=== PATIENT | female | born 1975 | race Caucasian/White ===

== ENCOUNTER 2016-12-05 05:14 | Emergency (ER) | payer BC ==
[2016-12-05] MEDS ORDERED: SODIUM CHLORIDE 0.9% 500 ML IV STA (05:33)
--- NOTE | 2016-12-05 05:35 | ED ---
General Adult HPI - General Source: patient, RN notes reviewed Mode of arrival: ambulatory Limitations: no limitations <Earle Rogers - Last Filed: 12/05/16 06:27> <Earle Rayo - Last Filed: 12/05/16 07:57> - General Chief complaint: Abdominal Pain Stated complaint: Abdominal Pain/Nausea Time Seen by Provider: 12/05/16 05:20 - History of Present Illness Initial comments: This is a 41-year-old female presents emergency Department with right upper quadrant epigastric pain. Patient states she woke up at 1:00 in the pain continued to feel about 4significant pain at that time. Patient states she's had multiple episodes of this intermittently throughout the last couple of years but has never been worked up for it. Patient states the pain now is very minimal. Patient states the pain radiated to her back. Patient denies any vomiting but was very nauseated at the time. She no longer is nauseated. Patient denies any fever or chills. Patient denies any diarrhea. Patient denied any chest pain palpitations difficulty breathing or shortness of breath. Patient denies any headache patient denies numbness weakness patient denies lightheadedness dizziness or near syncopal episode. (Earle Rogers) - Related Data Home Medications Medication Instructions Recorded Confirmed Acetaminophen Tab [Tylenol Tab] 1,000 mg PO Q6HR PRN 12/05/16 12/05/16 Allergies Allergy/AdvReac Type Severity Reaction Status Date / Time Penicillins Allergy Intermediate Rash/Hives Verified 12/05/16 07:39 Review of Systems ROS Other: All systems not noted in ROS Statement are negative. <Earle Rogers - Last Filed: 12/05/16 06:27> ROS Other: All systems not noted in ROS Statement are negative. <Earle Rayo - Last Filed: 12/05/16 07:57> ROS Statement: Those systems with pertinent positive or pertinent negative responses have been documented in the HPI. Past Medical History Past Medical History: No Reported History History of Any Multi-Drug Resistant Organisms: None Reported Past Surgical History: No Surgical Hx Reported Past Psychological History: No Psychological Hx Reported Smoking Status: Never smoker Past Alcohol Use History: None Reported Past Drug Use History: None Reported <Earle Rogers - Last Filed: 12/05/16 06:27> General Exam Limitations: no limitations <Rogers,Earle - Last Filed: 12/05/16 06:27> General appearance: alert, in no apparent distress Head exam: Present: atraumatic, normocephalic, normal inspection Eye exam: Present: normal appearance, PERRL, EOMI. Absent: scleral icterus, conjunctival injection, periorbital swelling ENT exam: Present: normal exam, mucous membranes moist Neck exam: Present: normal inspection. Absent: tenderness, meningismus, lymphadenopathy Respiratory exam: Present: normal lung sounds bilaterally. Absent: respiratory distress, wheezes, rales, rhonchi, stridor Cardiovascular Exam: Present: regular rate, normal rhythm, normal heart sounds. Absent: systolic murmur, diastolic murmur, rubs, gallop, clicks GI/Abdominal exam: Present: soft, normal bowel sounds. Absent: distended, tenderness, guarding, rebound, rigid Extremities exam: Present: normal inspection, full ROM, normal capillary refill. Absent: tenderness, pedal edema, joint swelling, calf tenderness Back exam: Present: normal inspection Neurological exam: Present: alert, oriented X3, CN II-XII intact Psychiatric exam: Present: normal affect, normal mood Skin exam: Present: warm, dry, intact, normal color. Absent: rash <Earle Rayo - Last Filed: 12/05/16 07:57> - General Exam Comments Initial Comments: GENERAL: Patient is well-developed and well-nourished. Patient is nontoxic and well- hydrated and is in mild distress. ENT: Neck is soft and supple. No significant lymphadenopathy is noted. Oropharynx is clear. Moist mucous membranes. Neck has full range of motion without eliciting any pain. EYES: The sclera were anicteric and conjunctiva were pink and moist. Extraocular movements were intact and pupils were equal round and reactive to light. Eyelids were unremarkable. PULMONARY: Unlabored respirations. Good breath sounds bilaterally. No audible rales rhonchi or wheezing was noted. CARDIOVASCULAR: There is a regular rate and rhythm without any murmurs gallops or rubs. ABDOMEN: Mild tenderness in the right upper quadrant epigastric region. No palpable organomegaly was noted. There is no palpable pulsatile mass. SKIN: Skin is clear with no lesions or rashes and otherwise unremarkable. NEUROLOGIC: Patient is alert and oriented x3. Cranial nerves II through XII are grossly intact. Motor and sensory are also intact. Normal speech, volume and content. Symmetrical smile. MUSCULOSKELETAL: Normal extremities with adequate strength and full range of motion. No lower extremity swelling or edema. No calf tenderness. LYMPHATICS: No significant lymphadenopathy is noted PSYCHIATRIC: Normal psychiatric evaluation. Normal interpersonal interactions appears functionally intact in deals appropriately with others. No signs of depression. No signs of anxiety. (Earle Rogers) Course <Earle Rogers - Last Filed: 12/05/16 06:27> <Earle Rayo - Last Filed: 12/05/16 07:57> Vital Signs 12/05/16 12/05/16 05:18 06:27 Temperature 98.7 F Pulse Rate 89 85 Respiratory 20 18 Rate Blood Pressure 119/83 113/79 O2 Sat by Pulse 98 100 Oximetry - Reevaluation(s) Reevaluation #1: 12/05/16 07:56 Patient's pain was resolving upon arrival to emergency room and patient states pain is now has been resolved throughout stay (Earle Rayo) Medical Decision Making - Lab Data Result diagrams: 12/05/16 05:50 12/05/16 05:50 <Earle Rogers - Last Filed: 12/05/16 06:27> - Lab Data Result diagrams: 12/05/16 05:50 12/05/16 05:50 - Radiology Data Radiology results: report reviewed (X-ray KUB negative for acute disease, GALLBLADDER NEGATIVE FOR ACUTE DISEASE), image reviewed <Earle Rayo - Last Filed: 12/05/16 07:57> - Medical Decision Making EKG shows normal sinus rhythm at 80 bpm RI interval is 146 QRS is 74 QT interval 394 QTC is 454. Patient's EKG shows no ST segment elevation or depression or T-wave abdomen is noted Dr. Rayo will be taking over the care of this patient 7 AM (Earle Rogers) 41 female ER for reevaluation of bowel pain. Epigastric abdominal pain, no help with Tylenol and Tums, patient's symptoms have improved upon arrival to emergency room, remained resolved, labwork oxide and x-ray are normal. Patient can be discharged home (Earle Rayo) - Lab Data Lab Results 12/05/16 12/05/16 Range/Units 05:50 05:50 WBC 8.3 (3.8-10.6) k/uL RBC 4.21 (3.80-5.40) m/uL Hgb 12.6 (11.4-16.0) gm/dL Hct 38.2 (34.0-46.0) % MCV 90.6 (80.0-100.0) fL MCH 30.0 (25.0-35.0) pg MCHC 33.1 (31.0-37.0) g/dL RDW 13.3 (11.5-15.5) % Plt Count 312 (150-450) k/uL Neutrophils % 78 % Lymphocytes % 16 % Monocytes % 3 % Eosinophils % 2 % Basophils % 0 % Neutrophils # 6.5 (1.3-7.7) k/uL Lymphocytes # 1.3 (1.0-4.8) k/uL Monocytes # 0.3 (0-1.0) k/uL Eosinophils # 0.1 (0-0.7) k/uL Basophils # 0.0 (0-0.2) k/uL Sodium 138 (137-145) mmol/L Potassium 4.4 (3.5-5.1) mmol/L Chloride 107 (98-107) mmol/L Carbon Dioxide 22 (22-30) mmol/L Anion Gap 9 mmol/L BUN 13 (7-17) mg/dL Creatinine 0.72 (0.52-1.04) mg/dL Est GFR (MDRD) Af Amer >60 (>60 ml/min/1.73 sqM) Est GFR (MDRD) Non-Af >60 (>60 ml/min/1.73 sqM) Glucose 99 (74-99) mg/dL Calcium 8.9 (8.4-10.2) mg/dL Total Bilirubin 1.0 (0.2-1.3) mg/dL AST 21 (14-36) U/L ALT 33 (9-52) U/L Alkaline Phosphatase 59 (38-126) U/L Total Protein 7.2 (6.3-8.2) g/dL Albumin 4.0 (3.5-5.0) g/dL Amylase 54 (30-110) U/L Lipase 78 (23-300) U/L Disposition <Earle Rogers - Last Filed: 12/05/16 06:27> <Earle Rayo - Last Filed: 12/05/16 07:57> Clinical Impression: Abdominal pain Disposition: HOME SELF-CARE Condition: Good Instructions: Abdominal Pain (ED) Referrals: Hemal Hernandez MD [Primary Care Provider] - 1-2 days
[2016-12-05 06:04] LABS: Basophils % (A) 0 %; CH 30.3; CHCM 33.7; Eosinophils # (A) 0.1 k/uL (0-0.7); Eosinophils % (A) 2 %; HCT 38.2 % (34.0-46.0); HDW 2.47; HGB 12.6 gm/dL (11.4-16.0); Luc # (Auto) 0.08; Luc % (Auto) 1; Lymphocytes # (A) 1.3 k/uL (1.0-4.8); Lymphocytes % (A) 16 %; MCHC 33.1 g/dL (31.0-37.0); MCV 90.6 fL (80.0-100.0); Monocytes # (A) 0.3 k/uL (0-1.0); Monocytes % (A) 3 %; Neutrophils # (A) 6.5 k/uL (1.3-7.7); Neutrophils % (A) 78 %; RBC 4.21 m/uL (3.80-5.40); RDW 13.3 % (11.5-15.5); WBC 8.3 k/uL (3.8-10.6); WBC (Perox) 8.65
--- NOTE | 2016-12-05 06:09 | XR ---
EXAMINATION TYPE: XR KUB DATE OF EXAM: 12/05/2016 5:59 AM CLINICAL HISTORY: Epigastric pain that radiates into the back. TECHNIQUE: Single upright KUB image of the abdomen is obtained. Additional radiograph was obtained. COMPARISON: None. FINDINGS: Scattered gas is seen in non-distended small bowel loops. There is moderate fecal material in the colon and rectum. There is no visceromegaly, pneumoperitoneum, or abnormal calcification janelle reciated. The lung bases are clear and the osseous structures are intact. IMPRESSION: There is moderate fecal material in the colon and rectum. Overall nonobstructive bowel gas pattern.
[2016-12-05 06:13] LABS: ALT 33 U/L (9-52); AST 21 U/L (14-36); Alkaline Phosphatase 59 U/L (38-126); Amylase 54 U/L (30-110); Anion Gap 9 mmol/L; Blood Urea Nitrogen 13 mg/dL (7-17); Calcium 8.9 mg/dL (8.4-10.2); Carbon Dioxide 22 mmol/L (22-30); Chloride 107 mmol/L (98-107); Glucose 99 mg/dL (74-99); Non-African American GFR(MDRD) >60 (>60 ml/min/1.73 sqM); Potassium 4.4 mmol/L (3.5-5.1); Sodium 138 mmol/L (137-145); Total Protein 7.2 g/dL (6.3-8.2)
--- NOTE | 2016-12-05 07:49 | US ---
EXAMINATION TYPE: US gallbladder DATE OF EXAM: 12/05/2016 7:21 AM COMPARISON: None CLINICAL HISTORY: 41-year-old female Pain. Intermittent RUQ pain and nausea x 3 years - gotten worse in last 2 days TECHNIQUE: Multiple sonographic images of the right upper quadrant are obtained. FINDINGS: Liver Length: 16.2 cm Gallbladder Wall: 0.3 cm CBD: 0.5 cm Right Kidney: 9.8 x 4.3 x 4.9 cm Pancreas: Tail is suboptimally visualized secondary to shadowing from bowel gas. There is prominence to the main pancreatic duct at the level of the pancreatic head and neck at 3 mm. Liver: Homogeneous echotexture without focal lesion. Gallbladder: There are numerous shadowing calculi measuring up to 1.6 cm dependent within the gallbl adder lumen. Gallbladder wall thickness is at the upper limits of normal at 2.9 mm. No abnormal gallb ladder distention or pericholecystic fluid. Evidence for sonographic Contreras's sign: no CBD: At the upper limits of normal. Right Kidney: No hydronephrosis. IMPRESSION: 1. The bile duct is at the upper limits of normal in caliber and there is also prominence to the dist al main pancreatic duct. Correlate with alkaline phosphatase and bilirubin levels to exclude the poss ibility of an early distal biliary obstruction. 2. Cholelithiasis without ancillary findings of acute cholecystitis.
[2016-12-05 08:17] VITALS: BP 110/69; PULSE 90; RESP 15; TEMP 98.3
== END 2016-12-05 08:18 | disposition home or self-care (01) ==
LOC: EC 05:14
DX: R10.13 Epigastric pain (principal); Z88.0 Allergy status to penicillin
CPT/HCPCS: 36415; 74000; 76705; 80053; 82150; 83690; 85025; 93005; 96360; 99284

== ENCOUNTER → 2017-08-14 | Outpatient (CLI) | payer BC ==
--- NOTE | 2017-08-15 07:20 | MM ---
Reason for exam: screening (asymptomatic). Last mammogram was performed 1 year ago. Physical Findings: A clinical breast exam by your physician is recommended on an annual basis and results should be correlated with mammographic findings. MG Screening Mammo w CAD Bilateral CC and MLO view(s) were taken. Prior study comparison: August 14, 2016, bilateral MG screening mammo w CAD. August 17, 2012, bilateral digital screening mammo w/CAD. The breast tissue is heterogeneously dense. This may lower the sensitivity of mammography. Finding: There are round, diffuse/scattered calcifications in both breasts, appears similar to priors. No suspicious abnormality. No significant changes in finding since August 14, 2016 and August 17, 2012. ASSESSMENT: Benign, BI-RAD 2 RECOMMENDATION: Routine screening mammogram of both breasts in 1 year.
== END | disposition home or self-care (01) ==
LOC: RADMAMWWP 08:10
PROVIDERS: ATTEND Obstetrics & Gynecology
DX: Z12.31 Encounter for screening mammogram for malignant neoplasm of breast (principal)

== ENCOUNTER → 2020-12-11 | Outpatient (CLI) | payer BC ==
--- NOTE | 2020-12-12 13:37 | MM ---
Reason for exam: screening (asymptomatic). Last mammogram was performed 1 year and 1 month ago. Physical Findings: A clinical breast exam by your physician is recommended on an annual basis and results should be correlated with mammographic findings. MG 3D Screening Mammo W/Cad Bilateral CC and MLO view(s) were taken. Prior study comparison: November 05, 2019, left breast mammogram, performed at [facility]. October 15, 2019, mammogram, performed at [facility]. August 14, 2017, bilateral MG screening mammo w CAD. August 14, 2016, bilateral MG screening mammo w CAD. The breast tissue is heterogeneously dense. This may lower the sensitivity of mammography. Finding #1: There is a 8 mm high density, oval mass in the subareolar position of the right breast. Finding #2: There are cesar-like calcifications in the 9 o'clock position of the right breast 7-8cm from the nipple with 5mm mass. New finding since October 15, 2019, August 14, 2017, and August 14, 2016. ASSESSMENT: Incomplete: need additional imaging evaluation, BI-RAD 0 RECOMMENDATION: Ultrasound of the right breast. [facility] will attempt to contact patient to return for ultrasound.
== END | disposition home or self-care (01) ==
LOC: RADMAMWWP 10:48
PROVIDERS: ATTEND Obstetrics & Gynecology
DX: Z12.31 Encounter for screening mammogram for malignant neoplasm of breast (principal)
CPT/HCPCS: 77063; 77067

== ENCOUNTER → 2020-12-15 | Outpatient (CLI) | payer BC ==
--- NOTE | 2020-12-15 12:17 | USB ---
Reason for exam: additional evaluation requested from abnormal screening. Physical Findings: Nurse did not find any significant physical abnormalities on exam. US Breast Workup Limited RT Right limited breast ultrasound including focal area of concern, retroareolar and axilla demonstrates duct ectasia at 7 o'clock and 9 o'clock, a 0.3 x 0.4 x 0.2cm oval lesion at 7 o'clock, a 0.6 x 0.8 x 0.5cm oval, cystic cluster at 10 o'clock, a 0.5 x 0.4 x 0.4cm oval, cystic lesion at 10 o'clock and a 0.4 x 0.4 x 0.4cm round, cystic lesion at 12 o'clock. These results were verbally communicated with the patient and result sheet given to the patient on 12/15/20. ASSESSMENT: Probably benign, BI-RAD 3 RECOMMENDATION: Follow-up diagnostic mammogram and ultrasound of the right breast in 6 months.
== END | disposition home or self-care (01) ==
LOC: RADUSWWP 08:57
PROVIDERS: ATTEND Obstetrics & Gynecology
DX: R92.8 Other abnormal and inconclusive findings on diagnostic imaging of breast (principal)

== ENCOUNTER → 2021-08-29 | Outpatient (CLI) | payer BC ==
--- NOTE | 2021-08-30 12:31 | USB ---
Reason for exam: follow-up at short interval from prior study. History: Family history of breast cancer in paternal grandmother. Physical Findings: Nurse did not find any significant physical abnormalities on exam. US Breast LT Left complete breast ultrasound includes all four quadrants, the retroareolar region and axilla. Finding demonstrates a 4 x 4 x 4mm oval, cystic lesion at 2 o'clock, a 11 x 6 x 10mm lobular, cystic lesion at 2 o'clock, a 4 x 3 x 4mm lobular, cystic lesion at 3 o'clock and duct ectasia at the posterior nipple. These results were verbally communicated with the patient and result sheet given to the patient on 08/29/21. ASSESSMENT: Benign, BI-RAD 2 RECOMMENDATION: Return to routine screening mammogram schedule for both breasts. Back on schedule for December 2021. Manage patient on a clinical basis.
== END | disposition home or self-care (01) ==
LOC: RADUSWWP 14:52
PROVIDERS: ATTEND Family Medicine
DX: N64.89 Other specified disorders of breast (principal); Z80.3 Family history of malignant neoplasm of breast

== ENCOUNTER → 2021-12-13 | Outpatient (CLI) | payer BC ==
--- NOTE | 2021-12-14 11:49 | MM ---
Reason for exam: screening (asymptomatic). Last mammogram was performed 1 year ago. History: Family history of breast cancer in paternal grandmother. Physical Findings: A clinical breast exam by your physician is recommended on an annual basis and results should be correlated with mammographic findings. MG 3D Screening Mammo W/Cad Bilateral CC and MLO view(s) were taken. Prior study comparison: December 11, 2020, bilateral MG 3d screening mammo w/cad. October 15, 2019, mammogram, performed at [facility]. August 14, 2017, bilateral MG screening mammo w CAD. August 14, 2016, bilateral MG screening mammo w CAD. The breast tissue is heterogeneously dense. This may lower the sensitivity of mammography. There is chronic nodularity in the right breast subareolar MLO view. No significant changes when compared with prior studies. ASSESSMENT: Benign, BI-RAD 2 RECOMMENDATION: Routine screening mammogram of both breasts in 1 year. Patient should continue monthly self breast exams. A negative report should not preclude additional follow up of suspicious palpable abnormalities.
== END | disposition home or self-care (01) ==
LOC: RADMAMWWP 07:01
PROVIDERS: ATTEND Obstetrics & Gynecology
DX: Z12.31 Encounter for screening mammogram for malignant neoplasm of breast (principal); Z80.3 Family history of malignant neoplasm of breast
CPT/HCPCS: 77063; 77067

== ENCOUNTER → 2023-12-26 | Outpatient (CLI) | payer BC ==
--- NOTE | 2023-12-29 14:22 | MM ---
Reason for Exam: Screening (asymptomatic). Last screening mammogram was performed 12 month(s) ago. Patient History: Menarche at age 14. First Full-Term at age 23. Patient has history of breast feeding. Patient used Hormonal Contraceptives for 21 years. Paternal grandmother had breast cancer. Last menstrual period: Risk Values: Carolyne 5 year model risk: 0.8%. NCI Lifetime model risk: 8.4%. Prior Study Comparison: 12/11/2020 Bilateral Screening Mammogram, [facility]. 12/13/2021 Bilateral Screening Mammogram, [facility]. 12/25/2022 Bilateral MG 3D screening mammo w/cad, [facility]. Tissue Density: The breast tissue is heterogeneously dense. This may lower the sensitivity of mammography. Findings: Analyzed By CAD. There is no suspicious group of microcalcifications or new suspicious mass. Benign-appearing calcifications bilaterally. Overall Assessment: Negative, BI-RAD 1 Management: Screening Mammogram of both breasts in [address] [facility] will attempt to contact patient to return for supplemental views and ultrasound if indicated. Patient should continue monthly self-breast exams. A clinical breast exam by your physician is recommended on an annual basis. This exam should not preclude additional follow-up of suspicious palpable abnormalities. Note on Carolyne scores and lifetime risk: 1. A Carolyne score greater than 3% is considered moderate risk. If this is the case, consider specialist referral to assess eligibility for a risk reducing agent. 2. If overall lifetime risk for the development of breast cancer is 20% or higher, the patient may qualify for future screening with alternating mammogram and breast MRI. Electronically signed and approved by: Scott Womack DO
== END | disposition home or self-care (01) ==
LOC: RADMAMWWP 06:58
PROVIDERS: ATTEND Obstetrics & Gynecology
DX: Z12.31 Encounter for screening mammogram for malignant neoplasm of breast (principal); Z80.3 Family history of malignant neoplasm of breast
CPT/HCPCS: 77063; 77067

== ENCOUNTER → 2025-01-05 | Outpatient (CLI) | payer BC ==
--- NOTE | 2025-01-05 09:09 | MM ---
Reason for Exam: Screening (asymptomatic). Last mammogram was performed 1 year(s) and 1 month(s) ago. Patient History: Menarche at age 14. First Full-Term at age 23. Patient has history of breast feeding. Patient used Hormonal Contraceptives for 21 years. Paternal grandmother had breast cancer. Mother had breast cancer, age 77. Last menstrual period: 12/24/2024 Risk Values: Carolyne 5 year model risk: 1.7%. NCI Lifetime model risk: 16.9%. Prior Study Comparison: 12/13/2021 Bilateral Screening Mammogram, [facility]. 12/25/2022 Bilateral MG 3D screening mammo w/cad, [facility]. 12/26/2023 Bilateral MG 3D screening mammo w/cad, [facility]. Tissue Density: The breasts are heterogeneously dense, which may obscure small masses. Findings: Analyzed By CAD. Regional punctate calcifications redemonstrated. Nodular asymmetric density central right CC view middle depth appears more pronounced than incompletely disperses on 3-D images. This may represent superimposition shadow as no clear correlate is seen on the MLO view. Further evaluation recommended. Otherwise, no significant change. Overall Assessment: Incomplete: need additional imaging evaluation, BI-RAD 0 Management: Special View Mammogram of the right breast. Spot 3-D CC, 3-D CC rolled, and 3-D LM views. [facility] will attempt to contact patient to return for supplemental views and ultrasound if indicated. [facility], , 01/05/2025 9:06 AM. Electronically signed and approved by: Bismark Jain M.D. Radiologist
== END | disposition home or self-care (01) ==
LOC: RADMAMWWP 07:28
PROVIDERS: ATTEND Family Medicine
DX: Z12.31 Encounter for screening mammogram for malignant neoplasm of breast (principal); R92.333 Mammographic heterogeneous density, bilateral breasts; Z92.0 Personal history of contraception; Z80.3 Family history of malignant neoplasm of breast
CPT/HCPCS: 77063; 77067

== ENCOUNTER → 2025-01-06 | Outpatient (CLI) | payer BC ==
--- NOTE | 2025-01-06 08:17 | MM ---
Reason for Exam: Additional evaluation requested from abnormal screening. Last screening mammogram was performed less than 1 month ago. Patient History: Menarche at age 14. First Full-Term at age 23. Patient has history of breast feeding. Patient used Hormonal Contraceptives for 21 years. Paternal grandmother had breast cancer. Mother had breast cancer, age 77. Risk Values: Carolyne 5 year model risk: 1.7%. NCI Lifetime model risk: 16.9%. Tissue Density: Right: The breasts are heterogeneously dense, which may obscure small masses. Findings: Analyzed By CAD. The questioned nodular asymmetric density central aspect at a middle depth becomes less defined on additional views with an appearance similar to prior studies compatible with a benign etiology. Overall Assessment: Benign, BI-RAD 2 Management: Screening Mammogram of both breasts in 1 year. Results were given to the patient verbally at the time of exam. Patient should continue monthly self-breast exams. A clinical breast exam by your physician is recommended on an annual basis. This exam should not preclude additional follow-up of suspicious palpable abnormalities. Note on Carolyne scores and lifetime risk: 1. A Carolyne score greater than 3% is considered moderate risk. If this is the case, consider specialist referral to assess eligibility for a risk reducing agent. 2. If overall lifetime risk for the development of breast cancer is 20% or higher, the patient may qualify for future screening with alternating mammogram and breast MRI. [facility], , 01/06/2025 8:14 AM. Electronically signed and approved by: Bismark Jain M.D. Radiologist
== END | disposition home or self-care (01) ==
LOC: RADMAMWWP 07:57
PROVIDERS: ATTEND Family Medicine
DX: R92.8 Other abnormal and inconclusive findings on diagnostic imaging of breast (principal); R92.333 Mammographic heterogeneous density, bilateral breasts; Z80.3 Family history of malignant neoplasm of breast; Z92.0 Personal history of contraception
CPT/HCPCS: 77061; 77065